=== PATIENT | male | born 1980 | race Caucasian/White ===

== ENCOUNTER 2018-03-16 08:36 | Emergency (ER) | payer OTHER, SELFPAY ==
[2018-03-16 08:36] VITALS: BMI 19.0
[2018-03-16 08:52] VITALS: PULSE 84
--- NOTE | 2018-03-16 09:15 | C.PDOC ---
History Of Present Illness 37 year old male patient presents to the ER with c/o right foot pain that started yesterday morning when he woke up. Patient reports it feels like a "cramp", worse when walking and is a 6/10. Patient states he never had this before ad denies prolong standing/walking, but he drives a lot. Patient is a peritoneal dialysis patient and goes to treatment x3 a week: Friday, Friday, Friday. Patient also notes he threw up yesterday after eating spicy food, which he was not allowed to eat due to dialysis. He states his throat is irritated and feels like "it's torn up". Time Seen by Provider: 03/16/18 08:53 Chief Complaint (Nursing): Lower Extremity Problem/Injury History Per: Patient History/Exam Limitations: no limitations Onset/Duration Of Symptoms: Days (yesterday), Sudden Onset Current Symptoms Are (Timing): Still Present Pain Scale Rating Of: 6 - Ankle/Foot Description Of Injury: denies: Fell, Struck With Object, Struck Against Object, Twisted Past Medical History Reviewed: Historical Data, Nursing Documentation, Vital Signs Vital Signs: Last Vital Signs Temp 97.8 F 03/16/18 08:47 Pulse 84 03/16/18 08:47 Resp 20 03/16/18 08:47 BP 189/109 H 03/16/18 08:42 Pulse Ox 99 03/16/18 09:57 - Medical History PMH: Anxiety (ABOUT DIAGNOSIS), Back Problems, HTN, End Stage Renal Disease (on peritoneal dialysis), Chronic Kidney Disease - [facility] Procedures BYPASS LEFT BRACHIAL ARTERY TO UPPER ARM VEIN, OPEN APPROACH (06/22/15) FLUOROSCOPY OF RIGHT HEART USING LOW OSMOLAR CONTRAST (06/22/15) INSERTION OF INFUSION DEV INTO R SUBCLAV VEIN, PERC APPROACH (06/22/15) PERFORMANCE OF URINARY FILTRATION, MULTIPLE (06/22/15) Family History: States: Unknown Family Hx - Social History Hx Tobacco Use: Yes Hx Alcohol Use: No Hx Substance Use: No - Immunization History Hx Tetanus Toxoid Vaccination: Yes Hx Influenza Vaccination: Yes Hx Pneumococcal Vaccination: Yes Review Of Systems Except As Marked, All Systems Reviewed And Found Negative. Constitutional: Negative for: Other (trauma on foot) ENT: Positive for: Throat Pain Musculoskeletal: Positive for: Foot Pain Physical Exam - Physical Exam Appears: Non-toxic, No Acute Distress Skin: Normal Color, Warm, Dry Head: Normacephalic Throat: Normal Neck: Normal ROM, Supple Chest: Symmetrical, No Deformity Respiratory: No Accessory Muscle Use, Other (speaking in full sentences) Gastrointestinal/Abdominal: Soft, Other (Peritoneal dialysis ) Extremity: Tenderness (anterior aspect of medial malleolus and dorsal aspect of foot. ), No Calf Tenderness, Capillary Refill (<2 sec), No Deformity, No Swelling, No Other (bruising) Extremity: Right: Painful To Bear Weight, Bilateral: Atraumatic, Normal Color And Temperature Pulses: Left Dorsalis Pedis: Normal, Right Dorsalis Pedis: Normal Neurological/Psych: Oriented x3, Normal Speech, Normal Sensation ED Course And Treatment O2 Sat by Pulse Oximetry: 99 (RA) Pulse Ox Interpretation: Normal - Other Rad ankle X-Ray: Read By Radiologist Interpretation: Accession No. : [id number]. Patient Name / ID : FIONA MCGOWAN / [id number]. Exam Date : 03/16/2018 09:18:13 ( Approved ). Study Comment : Sex / Age : M / 37Y. Creator : Samuel Melendez Dictator : Physical Trainer : Gas Pit Worker : Jacob Diane MD. Approver2 : Report Date : 03/16/2018 09:23:01. My Comment : . Date of service: 03/16/2018. PROCEDURE: Right Ankle Radiographs. HISTORY: pain. COMPARISON: Comparison made with concurrent radiographs of the right foot. FINDINGS: BONES: Normal. No fracture. JOINTS: Normal. No osteoarthritis. Ankle mortise maintained. Talar dome intact. SOFT TISSUES: Normal. OTHER FINDINGS: None. IMPRESSION: No evidence of acute displaced fracture nor dislocation. foot X-Ray: Read By Radiologist Interpretation: Accession No. : [id number]. Patient Name / ID : FIONA MCGOWAN / [id number]. Exam Date : 03/16/2018 09:21:04 ( Approved ). Study Comment : Sex / Age : M / 37Y. Creator : Samuel Melendez Dictator : Physical Trainer : Gas Pit Worker : Jacob Diane MD. Approver2 : Report Date : 03/16/2018 09:23:01. My Comment : . Date of service: 03/16/2018. PROCEDURE: Right Foot Radiographs. HISTORY: pain. COMPARISON: None. FINDINGS: BONES: Normal. No fracture. JOINTS: Normal. SOFT TISSUES: Normal. OTHER FINDINGS: None. IMPRESSION: No evidence of acute displaced fracture nor dislocation. Medical Decision Making Medical Decision Making: Impression: tendonitis Plans: -- ibuprofen -- tylenol -- XR right ankle -- XR right foot Reassess: Patient is resting comfortably. Tolerating PO. Patient is advised to ice his right foot and to rest. Patient is instructed to f/u with clinic in 1-2 days. Disposition Counseled Patient/Family Regarding: Studies Performed, Diagnosis, Need For Followup, Rx Given - Disposition Referrals: [facility] [Outside] Disposition: HOME/ ROUTINE Disposition Time: 10:53 Condition: STABLE Additional Instructions: Follow up with your doctor or our clinic. Ice your foot for 15 minutes every evening. Prescriptions: Ibuprofen [Motrin] 600 mg PO TID #15 tab Instructions: Plantar Fasciitis Exercises, Heel Pain (Caused by Plantar Fasciitis) (DC) Forms: [facility] (Togolese), General Discharge Instructions - POA Present On Arrival: None - Clinical Impression Clinical Impression: Foot pain, right - Scribe Statement The provider has reviewed the documentation as recorded by the Scribe Hendrix Do Provider Attestation: All medical record entries made by the Scribe were at my direction and personally dictated by me. I have reviewed the chart and agree that the record accurately reflects my personal performance of the history, physical exam, medical decision making, and the department course for this patient. I have also personally directed, reviewed, and agree with the discharge instructions and disposition.
--- NOTE | 2018-03-16 09:34 | RAD ---
Date of service: 03/16/2018 PROCEDURE: Right Ankle Radiographs. HISTORY: pain COMPARISON: Comparison made with concurrent radiographs of the right foot FINDINGS: BONES: Normal. No fracture. JOINTS: Normal. No osteoarthritis. Ankle mortise maintained. Talar dome intact SOFT TISSUES: Normal. OTHER FINDINGS: None. IMPRESSION: No evidence of acute displaced fracture nor dislocation.
--- NOTE | 2018-03-16 09:35 | RAD ---
Date of service: 03/16/2018 PROCEDURE: Right Foot Radiographs. HISTORY: pain COMPARISON: None. FINDINGS: BONES: Normal. No fracture. JOINTS: Normal. SOFT TISSUES: Normal. OTHER FINDINGS: None. IMPRESSION: No evidence of acute displaced fracture nor dislocation.
[2018-03-16 11:10] VITALS: BP 181/117; RESP 18; TEMP 98.4; O2SAT 96
== END 2018-03-16 11:25 | disposition home or self-care (01) ==
LOC: C.ER 08:36
DX: M79.671 Pain in right foot (principal)

== ENCOUNTER 2018-04-26 19:06 | Inpatient (IN) | payer OTHER ==
[2018-04-26 19:07] VITALS: BMI 16.2
--- NOTE | 2018-04-26 19:53 | C.PDOC ---
History Of Present Illness 38 year old male presents to the ED c/o chest pain since last night. Patient reports his pain is mostly right sided, described as pressure like. Patient reports pain is associated with epigastric pain radiating to his back. Patient i s currently on dialysis. Patient denies fever, chills, nausea, vomit, SOB, palpitations, weakness, numbness. Chief Complaint (Nursing): Chest Pain History Per: Patient History/Exam Limitations: no limitations Onset/Duration Of Symptoms: Days Current Symptoms Are (Timing): Still Present Quality: Pressure Recent travel outside of the [place]: No Additional History Per: Patient Past Medical History Reviewed: Historical Data, Nursing Documentation, Vital Signs Vital Signs: Last Vital Signs Temp 98.6 F 04/26/18 19:19 Pulse 92 H 04/26/18 19:32 Resp 16 04/26/18 19:19 BP 176/101 H 04/26/18 19:32 Pulse Ox 96 04/26/18 19:19 - Medical History PMH: Anxiety (ABOUT DIAGNOSIS), Back Problems, HTN (Denies), End Stage Renal Disease (on peritoneal dialysis), Chronic Kidney Disease Surgical History: No Surg Hx - [facility] Procedures BYPASS LEFT BRACHIAL ARTERY TO UPPER ARM VEIN, OPEN APPROACH (06/22/15) FLUOROSCOPY OF RIGHT HEART USING LOW OSMOLAR CONTRAST (06/22/15) INSERTION OF INFUSION DEV INTO R SUBCLAV VEIN, PERC APPROACH (06/22/15) PERFORMANCE OF URINARY FILTRATION, MULTIPLE (06/22/15) Family History: States: Unknown Family Hx - Social History Hx Tobacco Use: Yes Hx Alcohol Use: No Hx Substance Use: No - Immunization History Hx Tetanus Toxoid Vaccination: Yes Hx Influenza Vaccination: Yes Hx Pneumococcal Vaccination: Yes Review Of Systems Constitutional: Negative for: Fever, Chills Cardiovascular: Positive for: Chest Pain. Negative for: Palpitations Respiratory: Negative for: Shortness of Breath Gastrointestinal: Positive for: Abdominal Pain. Negative for: Nausea, Vomiting Musculoskeletal: Positive for: Back Pain Skin: Negative for: Rash Neurological: Negative for: Weakness, Numbness, Headache Physical Exam - Physical Exam Appears: Non-toxic, In Acute Distress (due to pain) Skin: Normal Color, Warm, Dry Head: Atraumatic, Normacephalic Eye(s): bilateral: Normal Inspection Oral Mucosa: Moist Neck: Normal ROM, Supple Chest: Symmetrical Cardiovascular: Rhythm Regular Respiratory: Normal Breath Sounds, No Rales, No Rhonchi, No Wheezing Gastrointestinal/Abdominal: Soft, Tenderness (epigastric), No Guarding, No Rebound Extremity: Normal ROM, No Tenderness, No Swelling Neurological/Psych: Oriented x3, Normal Speech, Normal Cognition Gait: Steady ED Course And Treatment - Laboratory Results Result Diagrams: 04/26/18 20:11 04/26/18 20:11 ECG: Interpreted By Me, Viewed By Me ECG Rhythm: Sinus Rhythm ECG Interpretation: Abnormal Interpretation Of ECG: NSR, LVH, abnormal tracings Rate From EC O2 Sat by Pulse Oximetry: 96 (ON RA) Pulse Ox Interpretation: Normal - CT Scan/US CT chest Other Rad Studies (CT/US): Read By Radiologist, Radiology Report Reviewed CT/US Interpretation: History. Pulmonary congestion, ESRD. Technique. Multiple axial, coronal, sagittal CT images were obtained through the thorax without IV contrast material. Findings. Chest. There is no evidence of pleural or parenchymal-based mass. There is no evidence of hilar or mediastinal lymphadenopathy. There are scattered pulmonary opacities noted throughout both lung rao consistent with diffuse multifocal pneumonia. Moderate sized right and small left pleural effusions present. The heart is moderately enlarged. Pulmonary venous congestion is present. Liver. Unremarkable. No gross lesion or ductal dilatation. Gallbladder and bile ducts. Unremarkable. Pancreas. Unremarkable. No gross lesion or ductal dilatation. Spleen. Unremarkable. Adrenals. Unremarkable. No mass. Kidneys and ureters. Unremarkable. No hydronephrosis. No solid mass. Peritoneum. There is large amount of free intraperitoneal air. Bones. No acute fracture. IMPRESSION: 1. Scattered pulmonary opacities noted throughout both lung rao consistent with diffuse multifocal pneumonia. 2. Moderate sized right and small left pleural effusions. 3. The heart is moderately enlarged. Pulmonary venous congestion is present. 4. There is large amount of free intraperitoneal air. Findings discussed with Dr. Thompson. . Electronically signed on Apr 26, 2018 10:59:25 PM EDT by: Raudel Sun M.D., ALEKSANDAR Certified By ABR & CBCCT. Fellowship Trained MRI and CT Specialist Medical Decision Making Medical Decision Making: Plan: * EKG * Labs * CXR * Nitroglycerin 1 ea TOP * Pepcid 20 mg IVP Disposition Discussed With DrAnand: Brett Alvarenga Doctor Will See Patient In The: Hospital Counseled Patient/Family Regarding: Diagnosis - Disposition Disposition: HOSPITALIZED Disposition Time: 22:56 Condition: STABLE Forms: [facility] (Tajik) - POA Present On Arrival: None - Clinical Impression Clinical Impression: ESRD (end stage renal disease), Pneumonia, Pulmonary embolism - Scribe Statement The provider has reviewed the documentation as recorded by the Scribe Willy Lopez All medical record entries made by the Scribe were at my direction and personally dictated by me. I have reviewed the chart and agree that the record accurately reflects my personal performance of the history, physical exam, medical decision making, and the department course for this patient. I have also personally directed, reviewed, and agree with the discharge instructions and disposition.
[2018-04-26] MEDS ORDERED: Nitroglycerin 2% Ointment Foilpak UD TOP STA (19:55)
[2018-04-26] MEDS ORDERED: Nitroglycerin 2% Ointment Foilpak UD TOP ONE (20:14)
[2018-04-26 20:21] LABS: BASO # 0.1 K/uL (0.0-0.2); BASO % 0.8 % (0.0-2.0); EOS # 0.2 K/uL (0.0-0.7); EOS % 1.7 % (0.0-4.0); LYMPH # 0.6 K/uL (1.0-4.3); LYMPH % 5.2 % (20.0-40.0); MEAN CELL VOLUME 87.3 fL (80.0-94.0); MEAN CORPUSCULAR HEMOGLOBIN 29.2 pg (27.0-31.0); MEAN CORPUSCULAR HGB CONC 33.5 g/dL (33.0-37.0); MEAN PLATELET VOLUME 6.8 fL (7.2-11.7); MONO # 0.7 K/uL (0.0-0.8); MONO % 6.7 % (0.0-10.0); NEUT # 9.1 K/uL (1.8-7.0); NEUT % 85.6 % (50.0-75.0); NRBC % 0.1 % (0.0-2.0); PLATELET COUNT 114 K/uL (130-400); RBC 3.78 Mil/uL (4.40-5.90); RED CELL DISTRIBUTION WIDTH 16.2 % (11.5-14.5); WHITE BLOOD COUNT 10.7 K/uL (4.8-10.8)
[2018-04-26 20:33] LABS: ALB/GLOB RATIO 1.5 (1.0-2.1); ALBUMIN 3.8 g/dL (3.5-5.0); CALCIUM 8.2 mg/dl (8.6-10.4)
[2018-04-26 20:34] LABS: PROTHROMBIN TIME 11.4 SECONDS (9.7-12.2)
[2018-04-26 20:40] LABS: TROPONIN I 0.033 ng/mL (0.00-0.120)
[2018-04-26 20:50] LABS: LARGE PLATELETS PRESENT; LYMPHOCYTE 9 % (20-40); MONOCYTE 3 % (0-10); NEUTROPHIL 88 % (50-75); PLATELET ESTIMATE SLIGHTLY DECREASED (NORMAL); TOTAL CELLS COUNTED 100
[2018-04-26] MEDS ORDERED: cefTRIAXone IV 1 gm in Dextros 50 ML IVPB ONE (22:31)
[2018-04-26] MEDS ORDERED: Azithromycin 500mg/250ML NS 500 MG/250 ML BAG IV STA (22:32)
[2018-04-26] MEDS ORDERED: Azithromycin 500mg/250ML NS 500 MG/250 ML BAG IVPB ONE (23:03)
[2018-04-26] MEDS ORDERED: cefTRIAXone 1 gm 1 GM/100 ML BAG IVPB ONE (23:04)
[2018-04-27] MEDS ORDERED: SODIUM CHLORIDE 0.9% IV ONE (00:10)
[2018-04-27] MEDS ORDERED: HEPARIN IV ONE (00:10)
--- NOTE | 2018-04-27 00:11 | CP.PCM.HP ---
<Morenita Gr - Last Filed: 04/27/18 00:08> History of Present Illness - History of Present Illness History of Present Illness: Pt is a 38yo M with PMH anxiety, ESRD on peritoneal dialysis daily, CKD presents to ED with chest pain for 2 days. Pt reports sharp pain in epigastric region and pressure-like pain on R side of chest that radiates to right neck. Pt rates pain at a 9/10. He reports associated palpitations, shortness of breath, dizziness, headache, and nausea. He denies any sweating, vomiting, diarrhea, or dysuria. In the ED, EKG showed NSR @92 bpm. Troponin x1 was negative. CXR and CT chest showed patchy b/l infiltrates. D-dimer was elevated at 1264. Pt was given nitroglycerin and started on azithromycin, ceftriaxone, and heparin bolus. SxH: none FamH: mom, epilepsy SocH: denies tobacco, alcohol, recreational drug use Meds: hydralazine 100 BID, norvasc 10 daily, motrin 600 TID, clonidine 0.2 BID, cinacalcet 30 daily, coreg 25 BID, phoslo, calcitriol 0.5 daily Allergies: NKDA PMD: none Pharmacy Technologist: Jm Present on Admission - Present on Admission Any Indicators Present on Admission: No Review of Systems - Review of Systems Review of Systems: as per HPI Past Patient History - Past Medical History & Family History Past Medical History?: Yes - Past Social History Smoking Status: Never Smoked - CARDIAC Hx Hypertension: Yes (Denies) - PULMONARY Hx Respiratory Disorders: No - NEUROLOGICAL Hx Neurological Disorder: No - HEENT Hx HEENT Problems: Yes - RENAL Hx Chronic Kidney Disease: Yes - ENDOCRINE/METABOLIC Hx Endocrine Disorders: No - HEMATOLOGICAL/ONCOLOGICAL Hx Blood Disorders: No - INTEGUMENTARY Hx Dermatological Problems: No - MUSCULOSKELETAL/RHEUMATOLOGICAL Hx Musculoskeletal Disorders: Yes - GASTROINTESTINAL Hx Gastrointestinal Disorders: Yes - GENITOURINARY/GYNECOLOGICAL Hx Genitourinary Disorders: No Other/Comment: DISTENDED BLADDER R/T INABILITY TO EMPTY BLADDER - PSYCHIATRIC Hx Anxiety: Yes (ABOUT DIAGNOSIS) Hx Substance Use: No - SURGICAL HISTORY Hx Surgeries: Yes Hx Vascular Surgery: Yes (left arm fistula perma cath insertion) Hx Vascular Access Device: Yes (RT. CHEST DIALYSIS PERMACATH) Other/Comment: lt arm AV shunt, rt chest permacath; PD surgery (01/25/16) - ANESTHESIA Hx Anesthesia: Yes Hx Anesthesia Reactions: No Hx Malignant Hyperthermia: No Meds Allergies/Adverse Reactions: Allergies Allergy/AdvReac Type Severity Reaction Status Date / Time No Known Allergies Allergy Verified 04/03/18 18:22 Physical Exam - Constitutional Appears: In Acute Distress - Head Exam Head Exam: ATRAUMATIC, NORMOCEPHALIC - Eye Exam Eye Exam: EOMI, Normal appearance Pupil Exam: NORMAL ACCOMODATION - ENT Exam ENT Exam: Mucous Membranes Moist - Neck Exam Neck exam: Positive for: Normal Inspection - Respiratory Exam Respiratory Exam: Clear to Auscultation Bilateral, NORMAL BREATHING PATTERN. absent: Rales, Rhonchi, Wheezes, Respiratory Distress - Cardiovascular Exam Cardiovascular Exam: REGULAR RHYTHM, +S1, +S2. absent: Gallop, Rubs, Systolic Murmur - GI/Abdominal Exam GI & Abdominal Exam: Normal Bowel Sounds, Soft, Tenderness. absent: Distended, Firm Additional comments: tenderness in epigastric region - Extremities Exam Extremities exam: Positive for: normal inspection. Negative for: pedal edema - Neurological Exam Neurological exam: Alert, Oriented x3 - Psychiatric Exam Psychiatric exam: Anxious Results - Vital Signs Recent Vital Signs: Last Vital Signs Temp 98.5 F 04/26/18 23:30 Pulse 95 H 04/26/18 23:30 Resp 22 04/26/18 23:30 BP 162/101 H 04/26/18 23:30 Pulse Ox 96 04/26/18 23:30 - Labs Result Diagrams: 04/26/18 20:11 04/26/18 20:11 Labs: Laboratory Results - last 24 hr 04/26/18 04/26/18 04/26/18 20:11 20:11 20:11 WBC 10.7 D RBC 3.78 L Hgb 11.0 L Hct 33.0 L MCV 87.3 D MCH 29.2 MCHC 33.5 RDW 16.2 H Plt Count 114 L D MPV 6.8 L Neut % (Auto) 85.6 H Lymph % (Auto) 5.2 L Douglas % (Auto) 6.7 Eos % (Auto) 1.7 Baso % (Auto) 0.8 Neut # (Auto) 9.1 H Lymph # (Auto) 0.6 L Douglas # (Auto) 0.7 Eos # (Auto) 0.2 Baso # (Auto) 0.1 Neutrophils % (Manual) 88 H Lymphocytes % (Manual) 9 L Monocytes % (Manual) 3 Platelet Estimate Slightly decreased L Large Platelets Present PT 11.4 INR 1.0 APTT 32 D-Dimer, Quantitative 1264 H Sodium 140 Potassium 4.0 Chloride 100 Carbon Dioxide 21 L Anion Gap 22 H BUN 109 H* Creatinine 12.0 H* Est GFR ( Amer) 6 Est GFR (Non-Af Amer) 5 Random Glucose 110 Calcium 8.2 L Total Bilirubin 0.7 AST 21 ALT 37 Alkaline Phosphatase 51 Troponin I 0.0330 Total Protein 6.4 Albumin 3.8 Globulin 2.6 Albumin/Globulin Ratio 1.5 Lipase 274 Assessment & Plan - Assessment and Plan (Free Text) Assessment: Pt is a 38yo M with PMH anxiety, ESRD on peritoneal dialysis daily, CKD presents to ED with chest pain admitted for further evaluation and treatment of pneumonia. Plan: CAP - pt afebrile - WBC: 10.7 - CXR, CT chest: b/l patchy infiltrates - start azithromycin 500 IV daily - start rocephin 1g IV daily Elevated D-dimer - D-dimer 1264 - CT angio not recommended at this time due to ESRD - given heparin 4000u in ED - start on heparin 18u/kg @900u/hr - consider V/Q scan ESRD - pt with CKD - BUN 109 - Cr 12 - on peritoneal dialysis daily - continue home hydralazine 100 BID - continue home norvasc 10 daily - continue home clonidine 0.2 BID - continue home cinacalcet 30 daily - continue home coreg 25 daily - phoslo BID - continue home calcitriol 0.5 daily - nephro consulted, Dr. Mack - f/u recs for dialysis Elevated BP - continue home hydralazine 100 BID - continue home norvasc 10 daily - continue home clonidine 0.2 BID - continue home coreg 25 daily PPX: Pepcid 20 po daily On therapeutic heparin HHD Case reviewed and plan discussed with Dr. Alvarenga <Brett Alvarenga - Last Filed: 04/27/18 06:40> Results - Vital Signs Recent Vital Signs: Last Vital Signs Temp 98.3 F 04/27/18 06:22 Pulse 98 H 04/27/18 06:22 Resp 18 10/15/18 06:22 BP 150/80 04/27/18 06:22 Pulse Ox 96 04/27/18 06:22 - Labs Result Diagrams: 04/26/18 20:11 04/26/18 20:11 Labs: Laboratory Results - last 24 hr 04/26/18 04/26/18 04/26/18 00:50 20:11 20:11 WBC 10.7 D RBC 3.78 L Hgb 11.0 L Hct 33.0 L MCV 87.3 D MCH 29.2 MCHC 33.5 RDW 16.2 H Plt Count 114 L D MPV 6.8 L Neut % (Auto) 85.6 H Lymph % (Auto) 5.2 L Douglas % (Auto) 6.7 Eos % (Auto) 1.7 Baso % (Auto) 0.8 Neut # (Auto) 9.1 H Lymph # (Auto) 0.6 L Douglas # (Auto) 0.7 Eos # (Auto) 0.2 Baso # (Auto) 0.1 Neutrophils % (Manual) 88 H Lymphocytes % (Manual) 9 L Monocytes % (Manual) 3 Platelet Estimate Slightly decreased L Large Platelets Present PT 11.4 INR 1.0 APTT 32 D-Dimer, Quantitative 1264 H Puncture Site Rr pCO2 37 pO2 89 HCO3 21.7 ABG pH 7.36 ABG Total CO2 22.0 ABG O2 Saturation 98.0 ABG Base Excess -4.1 L ABG Hemoglobin 10.1 L ABG Carboxyhemoglobin 2.8 H POC ABG HHb (Measured) 1.9 ABG Methemoglobin 1.5 Douglas Test Yes A-a O2 Difference 79.0 Respiratory Index 0.9 Hgb O2 Saturation 93.9 L FiO2 30.0 Sodium Potassium Chloride Carbon Dioxide Anion Gap BUN Creatinine Est GFR ( Amer) Est GFR (Non-Af Amer) Random Glucose Calcium Total Bilirubin AST ALT Alkaline Phosphatase Troponin I Total Protein Albumin Globulin Albumin/Globulin Ratio Lipase Urine Color Urine Clarity Urine pH Ur Specific [place] Urine Protein Urine Glucose (UA) Urine Ketones Urine Blood Urine Nitrate Urine Bilirubin Urine Urobilinogen Ur Leukocyte Esterase Urine WBC (Auto) Urine RBC (Auto) Ur Squamous Epith Cells 04/26/18 04/27/18 20:11 00:45 WBC RBC Hgb Hct MCV MCH MCHC RDW Plt Count MPV Neut % (Auto) Lymph % (Auto) Douglas % (Auto) Eos % (Auto) Baso % (Auto) Neut # (Auto) Lymph # (Auto) Douglas # (Auto) Eos # (Auto) Baso # (Auto) Neutrophils % (Manual) Lymphocytes % (Manual) Monocytes % (Manual) Platelet Estimate Large Platelets PT INR APTT D-Dimer, Quantitative Puncture Site pCO2 pO2 HCO3 ABG pH ABG Total CO2 ABG O2 Saturation ABG Base Excess ABG Hemoglobin ABG Carboxyhemoglobin POC ABG HHb (Measured) ABG Methemoglobin Douglas Test A-a O2 Difference Respiratory Index Hgb O2 Saturation FiO2 Sodium 140 Potassium 4.0 Chloride 100 Carbon Dioxide 21 L Anion Gap 22 H BUN 109 H* Creatinine 12.0 H* Est GFR ( Amer) 6 Est GFR (Non-Af Amer) 5 Random Glucose 110 Calcium 8.2 L Total Bilirubin 0.7 AST 21 ALT 37 Alkaline Phosphatase 51 Troponin I 0.0330 Total Protein 6.4 Albumin 3.8 Globulin 2.6 Albumin/Globulin Ratio 1.5 Lipase 274 Urine Color Straw Urine Clarity Clear Urine pH 6.0 Ur Specific [place] 1.010 Urine Protein 2+ H Urine Glucose (UA) 1+ H Urine Ketones Negative Urine Blood 1+ H Urine Nitrate Negative Urine Bilirubin Negative Urine Urobilinogen Normal Ur Leukocyte Esterase Neg Urine WBC (Auto) 2 Urine RBC (Auto) 3 Ur Squamous Epith Cells < 1 Assessment & Plan - Date & Time Date: 04/27/18 (I have seen and examined the patient. I agree with the findings and plan of care as documented by Dr. Gr. Patient with bilateral pneumonia. Elevated d-dimer. Azithromycin and Rocephin. CT angio not possible due to ESRD. VQ scan when possible. Heparin for now. Consult to nephro for dialysis. Monitor for acute changes.) Time: 06:38 Attending/Attestation - Attestation I have personally seen and examined this patient.: Yes I have fully participated in the care of the patient.: Yes I have reviewed all pertinent clinical information: Yes
[2018-04-27] MEDS ORDERED: Heparin25000 units/250ml 1/2NS 25,000 UNITS/250 ML BAG IV PRN (00:15)
[2018-04-27 00:51] LABS: SQUAMOUS EPITHIAL < 1 /hpf (0-5); URINE BILIRUBIN NEGATIVE (NEGATIVE); URINE BLOOD 1+ (NEGATIVE); URINE CLARITY Clear (Clear); URINE COLOR Straw (YELLOW); URINE GLUCOSE (UA) 1+ mg/dL (Normal); URINE LEUKOCYTE ESTERASE NEG Leu/uL (Negative); URINE PROTEIN 2+ mg/dL (NEGATIVE); URINE UROBILINOGEN NORMAL mg/dL (0.2-1.0)
[2018-04-27 01:07] LABS: ABG ALLEN TEST YES; ARTERIAL BLOOD GAS HCO3 21.7 mmol/L (21-28); ARTERIAL BLOOD GAS HEMOGLOBIN 10.1 g/dL (11.7-17.4); ARTERIAL BLOOD GAS PCO2 37 mm/Hg (35-45); ARTERIAL BLOOD GAS PH 7.36 (7.35-7.45); ARTERIAL BLOOD GAS PO2 89 mm/Hg (80-100)
[2018-04-27 07:02] LABS: BASO # 0.1 K/uL (0.0-0.2); BASO % 1.2 % (0.0-2.0); EOS # 0.1 K/uL (0.0-0.7); EOS % 0.6 % (0.0-4.0); HEMOGLOBIN 9.8 g/dL (12.0-18.0); LYMPH # 0.7 K/uL (1.0-4.3); LYMPH % 8.1 % (20.0-40.0); MEAN CELL VOLUME 86.9 fL (80.0-94.0); MEAN CORPUSCULAR HEMOGLOBIN 29.7 pg (27.0-31.0); MEAN CORPUSCULAR HGB CONC 34.1 g/dL (33.0-37.0); MONO # 0.8 K/uL (0.0-0.8); MONO % 8.4 % (0.0-10.0); NEUT # 7.5 K/uL (1.8-7.0); NEUT % 81.7 % (50.0-75.0); PLATELET COUNT 118 K/uL (130-400); RBC 3.32 Mil/uL (4.40-5.90); RED CELL DISTRIBUTION WIDTH 16.3 % (11.5-14.5); WHITE BLOOD COUNT 9.2 K/uL (4.8-10.8)
[2018-04-27 07:10] LABS: INR 1.1; PROTHROMBIN TIME 12.3 SECONDS (9.7-12.2)
[2018-04-27 08:23] LABS: ALB/GLOB RATIO 1.5 (1.0-2.1); ALBUMIN 3.5 g/dL (3.5-5.0); CALCIUM 7.2 mg/dl (8.6-10.4)
[2018-04-27 08:42] LABS: ANISOCYTOSIS SLIGHT; EOSINOPHIL 1 % (0-4); HYPOCHROMIC SLIGHT; LYMPHOCYTE 10 % (20-40); MONOCYTE 5 % (0-10); NEUTROPHIL 84 % (50-75); PLATELET ESTIMATE SLIGHTLY DECREASED (NORMAL); TOTAL CELLS COUNTED 100
--- NOTE | 2018-04-27 09:32 | CP.PCM.PN ---
<Jim Ma - Last Filed: 04/27/18 19:03> Subjective - Date & Time of Evaluation Date of Evaluation: 04/27/18 Time of Evaluation: 08:10 - Subjective Subjective: Medicine Progress Note for Hospitalist Service Pt seen and examined at bedside this am. States chest pain and epigastric pain have resolved. Denies any acute complaints currently. Observed tolerating PO diet without concerns. No acute events reported overnight. Pt denies fever, chills, chest pain, sob, n/v/d/c, abd pain, urinary complaints, or other symptoms. Objective - Vital Signs/Intake and Output Vital Signs (last 24 hours): Temp Pulse Resp BP Pulse Ox 98.3 F 94 H 18 143/76 97 04/27/18 06:22 04/27/18 07:32 04/27/18 07:32 04/27/18 07:32 04/27/18 07:32 Intake and Output: 04/27/18 04/27/18 06:59 18:59 Output Total 200 Balance -200 - Medications Medications: Current Medications Acetaminophen (Tylenol 325mg Tab) 325 mg PO Q6 PRN PRN Reason: Pain, moderate (4-7) Amlodipine Besylate (Norvasc) 10 mg PO DAILY [facility] Calcitriol (Rocaltrol) 0.5 mcg PO DAILY [facility] Calcium Acetate (Phoslo) 667 mg PO BIDCC [facility] Carvedilol (Coreg) 25 mg PO BID [facility] Cinacalcet (Sensipar) 30 mg PO DAILY [facility] Clonidine HCl (Catapres) 0.2 mg PO BID [facility] Famotidine (Pepcid) 20 mg PO BID [facility] Hydralazine HCl (Apresoline) 100 mg PO BID [facility] Azithromycin 500 mg/ Sodium (Chloride) 250 mls @ 250 mls/hr IVPB DAILY [facility]; Protocol Ceftriaxone Sodium 1 gm/ (Sodium Chloride) 100 mls @ 100 mls/hr IVPB DAILY [facility]; Protocol Heparin Sodium/Sodium Chloride (Heparin 20436 Units/250ml 1/2 Normal Saline) 25,000 units in 250 mls @ 9.226 mls/hr IV .Q24H PRN; Protocol PRN Reason: ADJUST RATE PER PROTOCOL Last Admin: 04/27/18 00:53 Dose: 18 units/kg/hr, 9.226 mls/hr Ondansetron HCl (Zofran Odt) 4 mg PO Q6H PRN PRN Reason: Nausea/Vomiting Last Admin: 04/26/18 23:45 Dose: 4 mg - Labs Labs: 04/27/18 06:54 04/27/18 06:58 PT 12.3 SECONDS (9.7-12.2) H 04/27/18 06:54 INR 1.1 04/27/18 06:54 APTT 46 SECONDS (21-34) H D 04/27/18 06:54 - Constitutional Appears: Non-toxic, No Acute Distress, Chronically Ill - Head Exam Head Exam: ATRAUMATIC, NORMOCEPHALIC - Eye Exam Eye Exam: EOMI, Normal appearance, PERRL - ENT Exam ENT Exam: Mucous Membranes Moist - Respiratory Exam Respiratory Exam: Clear to Ausculation Bilateral, NORMAL BREATHING PATTERN. absent: Rales, Rhonchi, Wheezes - Cardiovascular Exam Cardiovascular Exam: REGULAR RHYTHM, +S1, +S2. absent: Gallop, Rubs, Murmur - GI/Abdominal Exam GI & Abdominal Exam: Soft, Normal Bowel Sounds. absent: Distended, Firm, Guarding, Tenderness Additional comments: Peritoneal dialysis site c/d/i, covered in dressing - Extremities Exam Extremities Exam: Full ROM, Normal Capillary Refill, Normal Inspection. absent: Calf Tenderness, Pedal Edema - Neurological Exam Neurological Exam: Alert, Awake, CN II-XII Intact, Oriented x3 - Psychiatric Exam Psychiatric exam: Normal Affect, Normal Mood - Skin Skin Exam: Dry, Intact, Warm Assessment and Plan - Assessment and Plan (Free Text) Assessment: 38 y o M with PMHx anxiety, ESRD on peritoneal dialysis, CKD presents to ED with chest pain admitted for further evaluation and treatment of pneumonia. Plan: CAP - pt afebrile - WBC: 9.2 - CXR, CT chest: b/l patchy infiltrates - C/w azithromycin 500 IV daily - C/w rocephin 1g IV daily Elevated D-dimer - D-dimer 1264 - CT angio not recommended at this time due to ESRD - given heparin 4000u in ED - D/c'd heparin drip - V/Q scan low probability for acute clot ESRD - pt with CKD - BUN/Cr 108/11.6 today - on peritoneal dialysis - continue home hydralazine 100 BID - continue home norvasc 10 daily - continue home clonidine 0.2 BID - continue home cinacalcet 30 daily - continue home coreg 25 daily - phoslo BID - continue home calcitriol 0.5 daily - nephro consulted, Dr. Oneal - f/u recs for dialysis Elevated BP - continue home hydralazine 100 BID - continue home norvasc 10 daily - continue home clonidine 0.2 BID - continue home coreg 25 daily PPX: Pepcid 20 po daily Heparin D/c'd HHD Pt seen, examined with, and plan d/w Dr. Russo, attending physician. Jim Ma DO PGY-1, Education Administrator Pager #[phone] <Reginald Russo H - Last Filed: 04/27/18 19:37> Objective - Vital Signs/Intake and Output Vital Signs (last 24 hours): Temp Pulse Resp BP Pulse Ox 97.8 F 84 20 130/81 95 04/27/18 09:00 04/27/18 16:00 04/27/18 09:00 04/27/18 17:45 04/27/18 09:00 Intake and Output: 04/27/18 04/28/18 18:59 06:59 Intake Total 390 Output Total 100 Balance 290 - Medications Medications: Current Medications Acetaminophen (Tylenol 325mg Tab) 325 mg PO Q6 PRN PRN Reason: Pain, moderate (4-7) Amlodipine Besylate (Norvasc) 10 mg PO DAILY [facility] Last Admin: 04/27/18 10:09 Dose: 10 mg Calcitriol (Rocaltrol) 0.5 mcg PO DAILY [facility] Last Admin: 04/27/18 10:05 Dose: 0.5 mcg [facility] Last Admin: 04/27/18 17:43 Dose: 667 mg Carvedilol (Coreg) 25 mg PO BID [facility] Last Admin: 04/27/18 17:45 Dose: 25 mg Cinacalcet (Sensipar) 30 mg PO DAILY [facility] Last Admin: 04/27/18 10:05 Dose: 30 mg Clonidine HCl (Catapres) 0.2 mg PO BID [facility] Last Admin: 04/27/18 17:43 Dose: 0.2 mg Famotidine (Pepcid) 20 mg PO BID [facility] Last Admin: 04/27/18 17:43 Dose: 20 mg Hydralazine HCl (Apresoline) 100 mg PO BID [facility] Last Admin: 04/27/18 17:43 Dose: 100 mg Azithromycin 500 mg/ Sodium (Chloride) 250 mls @ 250 mls/hr IVPB DAILY [facility]; Protocol Ceftriaxone Sodium 1 gm/ (Sodium Chloride) 100 mls @ 100 mls/hr IVPB DAILY [facility]; Protocol Ondansetron HCl (Zofran Odt) 4 mg PO Q6H PRN PRN Reason: Nausea/Vomiting Last Admin: 04/26/18 23:45 Dose: 4 mg - Labs Labs: 04/27/18 06:54 04/27/18 06:58 PT 12.3 SECONDS (9.7-12.2) H 04/27/18 06:54 INR 1.1 04/27/18 06:54 APTT 46 SECONDS (21-34) H D 04/27/18 06:54 Attending/Attestation - Attestation I have personally seen and examined this patient.: Yes I have fully participated in the care of the patient.: Yes I have reviewed all pertinent clinical information, including history, physical exam and plan: Yes Notes (Text): 04/27/18 19:35 Medical attending: Patient was seen and examined by me. Agree with the above note by the diploma medical assistant The patient when we saw him was not in any acute distress. There was a CT scan done without contrast showing concerning findings for pneumonia and he remains on IV abx at this time. Also DDimer was elevated a V/Q scan was low probablity - the heparin ggt was stopped. The patient has history of ESRD and is pn PD dialysis. Reginald Russo
--- NOTE | 2018-04-27 12:33 | CP.PCM.PN ---
Subjective - Date & Time of Evaluation Date of Evaluation: 04/27/18 Time of Evaluation: 12:32 - Subjective Subjective: Pt is a 38yo M with PMH anxiety, ESRD on peritoneal dialysis daily, CKD presents to ED with chest pain for 2 days. Pt reports sharp pain in epigastric region and pressure-like pain on R side of chest that radiates to right neck. Pt rates pain at a 9/10. He reports associated palpitations, shortness of breath, dizziness, headache, and nausea. He denies any sweating, vomiting, diarrhea, or dysuria. CXR and CT chest showed patchy b/l infiltrates. D-dimer was elevated at 1264. Pt was given nitroglycerin and started on azithromycin, ceftriaxone on heparin gtt for elevated d dimer PD: APD, 4 nighttime exchanges, daytime dry. 2.5% dianeal. last pd friday night. denies any cloudy fluid, constipation SxH: none FamH: mom, epilepsy SocH: denies tobacco, alcohol, recreational drug use Meds: hydralazine 100 BID, norvasc 10 daily, motrin 600 TID, clonidine 0.2 BID, cinacalcet 30 daily, coreg 25 BID, phoslo, calcitriol 0.5 daily Allergies: NKDA PMD: none Objective - Vital Signs/Intake and Output Vital Signs (last 24 hours): Temp Pulse Resp BP Pulse Ox 98.3 F 94 H 16 148/92 H 100 04/27/18 06:22 04/27/18 07:32 04/27/18 09:00 04/27/18 10:04 04/27/18 09:00 Intake and Output: 04/27/18 04/27/18 06:59 18:59 Intake Total 240 Output Total 200 100 Balance -200 140 - Medications Medications: Current Medications Acetaminophen (Tylenol 325mg Tab) 325 mg PO Q6 PRN PRN Reason: Pain, moderate (4-7) Amlodipine Besylate (Norvasc) 10 mg PO DAILY [facility] Last Admin: 04/27/18 10:09 Dose: 10 mg Calcitriol (Rocaltrol) 0.5 mcg PO DAILY [facility] Last Admin: 04/27/18 10:05 Dose: 0.5 mcg Calcium Acetate (Phoslo) 667 mg PO BIDCC [facility] Last Admin: 04/27/18 08:45 Dose: 667 mg Carvedilol (Coreg) 25 mg PO BID [facility] Last Admin: 04/27/18 10:04 Dose: 25 mg Cinacalcet (Sensipar) 30 mg PO DAILY [facility] Last Admin: 04/27/18 10:05 Dose: 30 mg Clonidine HCl (Catapres) 0.2 mg PO BID [facility] Last Admin: 04/27/18 10:04 Dose: 0.2 mg Famotidine (Pepcid) 20 mg PO BID [facility] Last Admin: 04/27/18 10:04 Dose: 20 mg Hydralazine HCl (Apresoline) 100 mg PO BID [facility] Last Admin: 04/27/18 10:03 Dose: 100 mg Azithromycin 500 mg/ Sodium (Chloride) 250 mls @ 250 mls/hr IVPB DAILY [facility]; Protocol Ceftriaxone Sodium 1 gm/ (Sodium Chloride) 100 mls @ 100 mls/hr IVPB DAILY [facility]; Protocol Heparin Sodium/Sodium Chloride (Heparin 30625 Units/250ml 1/2 Normal Saline) 25,000 units in 250 mls @ 9.226 mls/hr IV .Q24H PRN; Protocol PRN Reason: ADJUST RATE PER PROTOCOL Last Admin: 04/27/18 00:53 Dose: 18 units/kg/hr, 9.226 mls/hr Ondansetron HCl (Zofran Odt) 4 mg PO Q6H PRN PRN Reason: Nausea/Vomiting Last Admin: 04/26/18 23:45 Dose: 4 mg - Labs Labs: 04/27/18 06:54 04/27/18 06:58 PT 12.3 SECONDS (9.7-12.2) H 04/27/18 06:54 INR 1.1 04/27/18 06:54 APTT 46 SECONDS (21-34) H D 04/27/18 06:54 - Constitutional Appears: Non-toxic, No Acute Distress, Older Than Stated Age, Cachectic - Head Exam Head Exam: NORMAL INSPECTION, NORMOCEPHALIC - Eye Exam Eye Exam: Normal appearance, PERRL - ENT Exam ENT Exam: Mucous Membranes Moist, Normal Exam - Neck Exam Neck Exam: Full ROM, Normal Inspection - Respiratory Exam Respiratory Exam: Clear to Ausculation Bilateral, NORMAL BREATHING PATTERN - Cardiovascular Exam Cardiovascular Exam: REGULAR RHYTHM, RRR - GI/Abdominal Exam GI & Abdominal Exam: Distended (PD cathetr in plac.e ), Soft. absent: Tenderness - Extremities Exam Extremities Exam: Full ROM, Normal Inspection - Neurological Exam Neurological Exam: Alert, Awake, Oriented x3 - Psychiatric Exam Psychiatric exam: Normal Affect, Normal Mood - Skin Skin Exam: Dry, Intact Assessment and Plan (1) ESRD (end stage renal disease) Status: Acute (2) Pneumonia Status: Acute (3) Pulmonary embolism Status: Acute (4) Anemia Status: Acute - Assessment and Plan (Free Text) Assessment: maintain PD okay for pt to use home machine and prescription ?dc heparin gtt
--- NOTE | 2018-04-27 12:41 | NM ---
Date of service: 04/27/2018 COMPARISON: April 26, 2018 TECHNIQUE: 6.1 mCi technetium 99-m Xenon 133 3.6 mCI technetium 99-m MAA administered intravenously. FINDINGS: VENTILATION COMPONENT: Mildly heterogeneous ventilation consistent with radiographic findings. PERFUSION COMPONENT: Heterogeneous distribution of radionuclide. No geographic, segmental, lobar abnormalities apparent on the present examination. IMPRESSION: Low probability ventilation perfusion scan for pulmonary embolism.
--- NOTE | 2018-04-27 13:42 | CT ---
Date of service: 04/26/18 CT chest without IV contrast Indication: Pulmonary congestion, end-stage renal disease Technique: Contiguous axial images were obtained through the chest without intravenous contrast enhancement. Sagittal and coronal reconstructions were generated and reviewed. This CT exam was performed using 1 or more of the following dose reduction techniques: Automated exposure control, adjustment of the MAA and/or kV according to patient size, and/or use of iterative reconstruction technique. Radiation dose (DLP): 173.48 MGy-cm. Comparison: Chest x-ray performed 04/26/18 Findings: Visualized portions of the inferior thyroid gland appear unremarkable. Cardiomegaly. Enlarged upper and lower mediastinal adenopathy. Prevascular adenopathy. Evaluation for hilar adenopathy is limited due to absence of IV contrast. Scattered bilateral pulmonary opacities throughout all lung rao with greatest distribution in the mid lung rao. Moderate right and small left pleural effusions and mild compressive consolidations. No pneumothorax. Limited visualization of the noncontrast upper abdomen; abdominal free air. Subtle increased density of the osseous structures. Impression: Patchy bilateral nodular pulmonary opacities throughout all lung rao with greatest distribution mid lung zones. Finding suspicious for diffuse multifocal pneumonia. Correlate clinically. Recommend follow-up upon completion of treatment in order to ensure complete resolution. Moderate-sized right and small left pleural effusions. Marked cardiomegaly. Pulmonary venous congestion. Extensive mediastinal/prevascular adenopathy. Large intraperitoneal free air. Subtle increased density of the osseous structures, possibly related to metabolic disease/renal osteodystrophy. Correlate clinically. Preliminary impression was provided by Fengguo. Dr. Sun discussed the above findings with Dr. Thompson on 04/26/18.
[2018-04-27] MEDS: Azithromycin 500 MG in Sodium Chloride 0.9% 250 ML IVPB SCH (22:30)
--- NOTE | 2018-04-27 23:02 | CARD ---
APPROVED REPORT Date of service: 04/26/2018 EKG Measurement Heart [id number] MD [id number] <Conclusion> Normal sinus rhythm Biatrial enlargement Left ventricular hypertrophy Prolonged QT Abnormal ECG
[2018-04-28 06:13] LABS: BASO # 0.1 K/uL (0.0-0.2); EOS # 0.2 K/uL (0.0-0.7); HEMOGLOBIN 9.2 g/dL (12.0-18.0); LYMPH # 0.7 K/uL (1.0-4.3); MEAN CORPUSCULAR HEMOGLOBIN 29.2 pg (27.0-31.0); MEAN CORPUSCULAR HGB CONC 33.5 g/dL (33.0-37.0); MONO # 1.1 K/uL (0.0-0.8); MONO % 10.2 % (0.0-10.0); NEUT # 8.3 K/uL (1.8-7.0); NEUT % 79.8 % (50.0-75.0); PLATELET COUNT 122 K/uL (130-400); RBC 3.15 Mil/uL (4.40-5.90); RED CELL DISTRIBUTION WIDTH 16.4 % (11.5-14.5); WHITE BLOOD COUNT 10.4 K/uL (4.8-10.8)
[2018-04-28 06:47] LABS: ALB/GLOB RATIO 1.3 (1.0-2.1); ALBUMIN 3.2 g/dL (3.5-5.0); CALCIUM 7.1 mg/dl (8.6-10.4)
[2018-04-28 09:02] LABS: BANDS 1 % (0-2); LYMPHOCYTE 9 % (20-40); MONOCYTE 7 % (0-10); NEUTROPHIL 83 % (50-75); TOTAL CELLS COUNTED 100
[2018-04-28 09:03] LABS: ANISOCYTOSIS SLIGHT; PLATELET ESTIMATE SLIGHTLY DECREASED (NORMAL)
[2018-04-28] MEDS: Azithromycin 500 MG in Sodium Chloride 0.9% 250 ML IVPB SCH (09:35)
--- NOTE | 2018-04-28 09:38 | RAD ---
Date of service: 2018-04-26 19:53:16 PROCEDURE: CHEST RADIOGRAPH, 1 VIEW HISTORY: chest pain COMPARISON: 04/03/2018 FINDINGS: LUNGS: Diffuse multifocal bilateral airspace opacities. PLEURA: No pneumothorax or pleural fluid seen. CARDIOVASCULAR: Cardiomegaly. OSSEOUS STRUCTURES: No significant abnormalities. VISUALIZED UPPER ABDOMEN: Extensive free intraperitoneal air in the upper abdomen. OTHER FINDINGS: None. IMPRESSION: Diffuse multifocal airspace opacities suggestive for multifocal pneumonia. Free intraperitoneal air within the upper abdomen.
--- NOTE | 2018-04-28 10:09 | CP.PCM.PN ---
Subjective - Date & Time of Evaluation Date of Evaluation: 04/28/18 Time of Evaluation: 10:08 - Subjective Subjective: seen and examined neg v/q scan c/o constipation abdominal pain resolved, chest pain resolved pd fluid clear spoke w/ outpt PD nurse reg prescription Objective - Vital Signs/Intake and Output Vital Signs (last 24 hours): Temp Pulse Resp BP Pulse Ox 97.9 F 83 13 139/86 96 04/28/18 08:00 04/28/18 08:00 04/28/18 08:00 04/28/18 09:32 04/28/18 08:00 - Medications Medications: Current Medications Acetaminophen (Tylenol 325mg Tab) 325 mg PO Q6 PRN PRN Reason: Pain, moderate (4-7) Last Admin: 04/28/18 02:30 Dose: 325 mg Amlodipine Besylate (Norvasc) 10 mg PO DAILY [facility] Last Admin: 04/28/18 09:34 Dose: 10 mg Calcitriol (Rocaltrol) 0.5 mcg PO DAILY [facility] Last Admin: 04/28/18 09:34 Dose: 0.5 mcg [facility]) [facility] Last Admin: 04/28/18 08:18 Dose: 667 mg Carvedilol (Coreg) 25 mg PO BID [facility] Last Admin: 04/28/18 09:32 Dose: 25 mg Cinacalcet (Sensipar) 30 mg PO DAILY [facility] Last Admin: 04/28/18 09:35 Dose: 30 mg Clonidine HCl (Catapres) 0.2 mg PO BID [facility] Last Admin: 04/28/18 09:32 Dose: 0.2 mg Famotidine (Pepcid) 20 mg PO BID [facility] Last Admin: 04/28/18 09:34 Dose: 20 mg Hydralazine HCl (Apresoline) 100 mg PO BID [facility] Last Admin: 04/28/18 09:32 Dose: 100 mg Azithromycin 500 mg/ Sodium (Chloride) 250 mls @ 250 mls/hr IVPB DAILY [facility]; Protocol Last Admin: 04/28/18 09:35 Dose: 250 mls/hr Ceftriaxone Sodium 1 gm/ (Sodium Chloride) 100 mls @ 100 mls/hr IVPB DAILY [facility]; Protocol Last Admin: 04/28/18 09:34 Dose: 100 mls/hr Ondansetron HCl (Zofran Odt) 4 mg PO Q6H PRN PRN Reason: Nausea/Vomiting Last Admin: 04/26/18 23:45 Dose: 4 mg - Labs Labs: 04/28/18 06:02 04/28/18 06:02 PT 12.3 SECONDS (9.7-12.2) H 04/27/18 06:54 INR 1.1 04/27/18 06:54 APTT 46 SECONDS (21-34) H D 04/27/18 06:54 - Constitutional Appears: Non-toxic, No Acute Distress, Chronically Ill - Head Exam Head Exam: NORMAL INSPECTION, NORMOCEPHALIC - Eye Exam Eye Exam: Normal appearance, PERRL - ENT Exam ENT Exam: Mucous Membranes Moist, Normal Exam - Neck Exam Neck Exam: Full ROM, Normal Inspection - Respiratory Exam Respiratory Exam: Clear to Ausculation Bilateral, NORMAL BREATHING PATTERN - Cardiovascular Exam Cardiovascular Exam: REGULAR RHYTHM, RRR - GI/Abdominal Exam GI & Abdominal Exam: Distended (pd fluid), Soft - Extremities Exam Extremities Exam: Full ROM, Normal Inspection - Neurological Exam Neurological Exam: Alert, Awake, Oriented x3 - Psychiatric Exam Psychiatric exam: Normal Affect, Normal Mood - Skin Skin Exam: Dry, Intact Assessment and Plan (1) ESRD (end stage renal disease) Status: Acute (2) Pneumonia Status: Acute (3) Pulmonary embolism Status: Acute (4) Anemia Status: Acute - Assessment and Plan (Free Text) Assessment: maintain PD as per outpt prescription azotemia noted, pt advised compliance w/ treatments. check fluid cell count and culture lactulose for constipation
[2018-04-28 12:27] VITALS: BP 111/61; RESP 12; TEMP 97.6; O2SAT 95
--- NOTE | 2018-04-28 16:16 | CP.PCM.DIS ---
<Gypsy Louis P - Last Filed: 04/28/18 23:43> Provider - Provider Date of Admission: 04/26/18 22:58 Attending physician: Brett Alvarenga MD Consults: Dr. Walters/Dr. Oneal, nephrology Time Spent in preparation of Discharge (in minutes): 45 Diagnosis - Discharge Diagnosis (1) Pneumonia Status: Acute (2) CKD (chronic kidney disease) stage V requiring chronic dialysis Status: Acute (3) D-dimer, elevated Status: Acute Hospital Course - Lab Results Lab Results: Micro Results 04/26/18 22:30 Blood Blood Culture - Preliminary NO GROWTH AFTER 24 HOURS 04/26/18 23:00 Blood Blood Culture - Preliminary NO GROWTH AFTER 24 HOURS Most Recent Lab Values WBC 10.4 K/uL (4.8-10.8) 04/28/18 06:02 RBC 3.15 Mil/uL (4.40-5.90) L 04/28/18 06:02 Hgb 9.2 g/dL (12.0-18.0) L 04/28/18 06:02 Hct 27.4 % (35.0-51.0) L 04/28/18 06:02 MCV 87.0 fL (80.0-94.0) 04/28/18 06:02 MCH 29.2 pg (27.0-31.0) 04/28/18 06:02 MCHC 33.5 g/dL (33.0-37.0) 04/28/18 06:02 RDW 16.4 % (11.5-14.5) H 04/28/18 06:02 Plt Count 122 K/uL (130-400) L 04/28/18 06:02 MPV 7.0 fL (7.2-11.7) L 04/28/18 06:02 Neut % (Auto) 79.8 % (50.0-75.0) H 04/28/18 06:02 Lymph % (Auto) 7.0 % (20.0-40.0) L 04/28/18 06:02 [place] % (Auto) 10.2 % (0.0-10.0) H 04/28/18 06:02 Eos % (Auto) 2.0 % (0.0-4.0) 04/28/18 06:02 Baso % (Auto) 1.0 % (0.0-2.0) 04/28/18 06:02 Neut # (Auto) 8.3 K/uL (1.8-7.0) H 04/28/18 06:02 Lymph # (Auto) 0.7 K/uL (1.0-4.3) L 04/28/18 06:02 [place] # (Auto) 1.1 K/uL (0.0-0.8) H 04/28/18 06:02 Eos # (Auto) 0.2 K/uL (0.0-0.7) 04/28/18 06:02 Baso # (Auto) 0.1 K/uL (0.0-0.2) 04/28/18 06:02 Neutrophils % (Manual) 83 % (50-75) H 04/28/18 06:02 Band Neutrophils % 1 % (0-2) 04/28/18 06:02 Lymphocytes % (Manual) 9 % (20-40) L 04/28/18 06:02 Monocytes % (Manual) 7 % (0-10) 04/28/18 06:02 Eosinophils % (Manual) 1 % (0-4) 04/27/18 06:54 Platelet Estimate Slightly decreased (NORMAL) L 04/28/18 06:02 Large Platelets Present 04/26/18 20:11 Hypochromasia (manual) Slight 04/27/18 06:54 Anisocytosis (manual) Slight 04/28/18 06:02 PT 12.3 SECONDS (9.7-12.2) H 04/27/18 06:54 INR 1.1 04/27/18 06:54 APTT 46 SECONDS (21-34) H D 04/27/18 06:54 D-Dimer, Quantitative 1264 ng/mlDDU (0-243) H 04/26/18 20:11 Puncture Site Rr 04/26/18 00:50 pCO2 37 mm/Hg (35-45) 04/26/18 00:50 pO2 89 mm/Hg (80-100) 04/26/18 00:50 HCO3 21.7 mmol/L (21-28) 04/26/18 00:50 ABG pH 7.36 (7.35-7.45) 04/26/18 00:50 ABG Total CO2 22.0 mmol/L (22-28) 04/26/18 00:50 ABG O2 Saturation 98.0 % (95-98) 04/26/18 00:50 ABG Base Excess -4.1 mmol/L (-2.0-3.0) L 04/26/18 00:50 ABG Hemoglobin 10.1 g/dL (11.7-17.4) L 04/26/18 00:50 ABG Carboxyhemoglobin 2.8 % (0.5-1.5) H 04/26/18 00:50 POC ABG HHb (Measured) 1.9 % (0.0-5.0) 04/26/18 00:50 ABG Methemoglobin 1.5 % (0.0-3.0) 04/26/18 00:50 Douglas Test Yes 04/26/18 00:50 A-a O2 Difference 79.0 mm/Hg 04/26/18 00:50 Respiratory Index 0.9 04/26/18 00:50 Hgb O2 Saturation 93.9 % (95.0-98.0) L 04/26/18 00:50 FiO2 30.0 % 04/26/18 00:50 Sodium 139 mmol/L (132-148) 04/28/18 06:02 Potassium 3.7 mmol/L (3.6-5.2) 04/28/18 06:02 Chloride 100 mmol/L (98-107) 04/28/18 06:02 Carbon Dioxide 21 mmol/L (22-30) L 04/28/18 06:02 Anion Gap 22 (10-20) H 04/28/18 06:02 BUN 105 mg/dL (9-20) H* 04/28/18 06:02 Creatinine 12.0 mg/dL (0.8-1.5) H* 04/28/18 06:02 Est GFR ( Amer) 6 04/28/18 06:02 Est GFR (Non-Af Amer) 5 04/28/18 06:02 Random Glucose 85 mg/dL (75-110) 04/28/18 06:02 Calcium 7.1 mg/dl (8.6-10.4) L 04/28/18 06:02 Total Bilirubin 0.4 mg/dL (0.2-1.3) 04/28/18 06:02 AST 19 U/L (17-59) 04/28/18 06:02 ALT 34 U/L (21-72) 04/28/18 06:02 Alkaline Phosphatase 41 U/L (38-126) 04/28/18 06:02 Troponin I 0.0330 ng/mL (0.00-0.120) 04/26/18 20:11 Total Protein 5.6 g/dL (6.3-8.3) L 04/28/18 06:02 Albumin 3.2 g/dL (3.5-5.0) L 04/28/18 06:02 Globulin 2.4 gm/dL (2.2-3.9) 04/28/18 06:02 Albumin/Globulin Ratio 1.3 (1.0-2.1) 04/28/18 06:02 Lipase 274 U/L (23-300) 04/26/18 20:11 Urine Color Straw (YELLOW) 04/27/18 00:45 Urine Clarity Clear (Clear) 04/27/18 00:45 Urine pH 6.0 (5.0-8.0) 04/27/18 00:45 Ur Specific Otis 1.010 (1.003-1.030) 04/27/18 00:45 Urine Protein 2+ mg/dL (NEGATIVE) H 04/27/18 00:45 Urine Glucose (UA) 1+ mg/dL (Normal) H 04/27/18 00:45 Urine Ketones Negative mg/dL (NEGATIVE) 04/27/18 00:45 Urine Blood 1+ (NEGATIVE) H 04/27/18 00:45 Urine Nitrate Negative (NEGATIVE) 04/27/18 00:45 Urine Bilirubin Negative (NEGATIVE) 04/27/18 00:45 Urine Urobilinogen Normal mg/dL (0.2-1.0) 04/27/18 00:45 Ur Leukocyte Esterase Neg Jaci/uL (Negative) 04/27/18 00:45 Urine WBC (Auto) 2 /hpf (0-5) 18 00:45 Urine RBC (Auto) 3 /hpf (0-3) 18 00:45 Ur Squamous Epith Cells < 1 /hpf (0-5) 04/27/18 00:45 Influenza Typ A,B (EIA) Negative for flu a/b (NEGATIVE) 04/27/18 07:04 - Hospital Course Hospital Course: On admission: Pt is a 38yo M with PMH anxiety, ESRD on peritoneal dialysis daily, CKD prese nts to ED with chest pain for 2 days. Pt reports sharp pain in epigastric region and pressure-like pain on R side of chest that radiates to right neck. Pt rates pain at a 9/10. He reports associated palpitations, shortness of breath, dizziness, headache, and nausea. He denies any sweating, vomiting, diarrhea, or dysuria. In the ED, EKG showed NSR @92 bpm. Troponin x1 was negative. CXR and CT chest showed patchy b/l infiltrates. D-dimer was elevated at 1264. Pt was given nitroglycerin and started on azithromycin, ceftriaxone, and heparin bolus. Hospital Course: Patient admitted and treated for pneumonia with azithromycin 500 IV daily and rocephin 1g IV daily. CXR and CT chest were done which showed bilateral patchy infiltrates (see full report). Patient had an elevated D-dimer in ED. CT angio was not recommended due to ESRD. V/Q scan showed low probability for acute clot. Patient resumed daily peritoneal dialysis while hospitalized. He was followed by Dr. Walters who recommended to continue home peritoneal dialysis. Home medications were resumed as well. Patient's symptoms resolved during stay and felt much better on day of discharge. He is discharged to home with PO antibiotics. Discharge instructions: Patient is stable for discharge as per Dr. Russo. Patient is being discharged with the follow prescriptions: Augmentin 875-125mg twice daily for 6 days Colace 100mg twice daily Patient is to follow up with Dr. Oneal/Dr. Walters's nephrology group. Contact information will be included in your discharge packet. You are to continue peritoneal dialysis. You will receive a script for peritoneal dialysis with your discharge packet. Return to Emergency department if you experience new or worsening symptoms. Discharge Exam - Head Exam Head Exam: NORMAL INSPECTION, NORMOCEPHALIC - Eye Exam Eye Exam: EOMI, PERRL - ENT Exam ENT Exam: Mucous Membranes Moist - Respiratory Exam Respiratory Exam: Decreased Breath Sounds (in all rao worse in RUL). absent: Rales, Rhonchi, Wheezes - Cardiovascular Exam Cardiovascular Exam: REGULAR RHYTHM, +S1, +S2 - GI/Abdominal Exam GI & Abdominal Exam: Soft. absent: Guarding, Rebound, Tenderness Additional comments: Peritoneal dialysis access R abdomen. Dressing is clean dry and intact. - Extremities Exam Extremities exam: full ROM, normal inspection - Neurological Exam Neurological exam: Alert, CN II-XII Intact, Oriented x3 - Psychiatric Exam Psychiatric exam: Normal Affect, Normal Mood - Skin Skin Exam: Dry, Normal Color, Warm Discharge Plan - Discharge Medications Prescriptions: Amoxicillin/Clavulanate [Augmentin 875 MG-125 MG] 1 tab PO BID #12 tab Docusate Sodium [Colace] 100 mg PO BID #28 capsule - Follow Up Plan Condition: STABLE Disposition: HOME/ ROUTINE Instructions: Pneumonia, Adult (DC), Community-Acquired Pneumonia, Adult (DC), Dialysis and Diet Additional Instructions: Patient is stable for discharge as per Dr. Russo. Patient is being discharged with the follow prescriptions: Augmentin 875-125mg twice daily for 6 days Colace 100mg twice daily Patient is to follow up with Dr. Oneal/Dr. Walters's nephrology group. Contact information will be included in your discharge packet. You are to continue peritoneal dialysis. You will receive a script for peritoneal dialysis with your discharge packet. Return to ED if you experience new or worsening symptoms. Referrals: Vince Oneal MD [Staff Provider] - <Reginald Russo H - Last Filed: 04/29/18 07:26> Provider - Provider Date of Admission: 04/26/18 22:58 Attending physician: Brett Alvarenga MD Hospital Course - Lab Results Lab Results: Micro Results 04/27/18 08:55 Naris MRSA Culture (Admit) - Final MRSA NOT DETECTED 04/27/18 00:35 Urine,Clean Catch Urine Culture - Final No Growth (<1,000 CFU/ML) 04/26/18 22:30 Blood Blood Culture - Preliminary NO GROWTH AFTER 24 HOURS 04/26/18 23:00 Blood Blood Culture - Preliminary NO GROWTH AFTER 24 HOURS Most Recent Lab Values WBC 10.4 K/uL (4.8-10.8) 04/28/18 06:02 RBC 3.15 Mil/uL (4.40-5.90) L 04/28/18 06:02 Hgb 9.2 g/dL (12.0-18.0) L 04/28/18 06:02 Hct 27.4 % (35.0-51.0) L 04/28/18 06:02 MCV 87.0 fL (80.0-94.0) 04/28/18 06:02 MCH 29.2 pg (27.0-31.0) 04/28/18 06:02 MCHC 33.5 g/dL (33.0-37.0) 04/28/18 06:02 RDW 16.4 % (11.5-14.5) H 04/28/18 06:02 Plt Count 122 K/uL (130-400) L 04/28/18 06:02 MPV 7.0 fL (7.2-11.7) L 04/28/18 06:02 Neut % (Auto) 79.8 % (50.0-75.0) H 04/28/18 06:02 Lymph % (Auto) 7.0 % (20.0-40.0) L 04/28/18 06:02 [place] % (Auto) 10.2 % (0.0-10.0) H 04/28/18 06:02 Eos % (Auto) 2.0 % (0.0-4.0) 04/28/18 06:02 Baso % (Auto) 1.0 % (0.0-2.0) 04/28/18 06:02 Neut # (Auto) 8.3 K/uL (1.8-7.0) H 04/28/18 06:02 Lymph # (Auto) 0.7 K/uL (1.0-4.3) L 04/28/18 06:02 [place] # (Auto) 1.1 K/uL (0.0-0.8) H 04/28/18 06:02 Eos # (Auto) 0.2 K/uL (0.0-0.7) 04/28/18 06:02 Baso # (Auto) 0.1 K/uL (0.0-0.2) 04/28/18 06:02 Neutrophils % (Manual) 83 % (50-75) H 04/28/18 06:02 Band Neutrophils % 1 % (0-2) 04/28/18 06:02 Lymphocytes % (Manual) 9 % (20-40) L 04/28/18 06:02 Monocytes % (Manual) 7 % (0-10) 04/28/18 06:02 Eosinophils % (Manual) 1 % (0-4) 04/27/18 06:54 Platelet Estimate Slightly decreased (NORMAL) L 04/28/18 06:02 Large Platelets Present 04/26/18 20:11 Hypochromasia (manual) Slight 04/27/18 06:54 Anisocytosis (manual) Slight 04/28/18 06:02 PT 12.3 SECONDS (9.7-12.2) H 04/27/18 06:54 INR 1.1 04/27/18 06:54 APTT 46 SECONDS (21-34) H D 04/27/18 06:54 D-Dimer, Quantitative 1264 ng/mlDDU (0-243) H 04/26/18 20:11 Puncture Site Rr 04/26/18 00:50 pCO2 37 mm/Hg (35-45) 04/26/18 00:50 pO2 89 mm/Hg (80-100) 04/26/18 00:50 HCO3 21.7 mmol/L (21-28) 04/26/18 00:50 ABG pH 7.36 (7.35-7.45) 04/26/18 00:50 ABG Total CO2 22.0 mmol/L (22-28) 04/26/18 00:50 ABG O2 Saturation 98.0 % (95-98) 04/26/18 00:50 ABG Base Excess -4.1 mmol/L (-2.0-3.0) L 04/26/18 00:50 ABG Hemoglobin 10.1 g/dL (11.7-17.4) L 04/26/18 00:50 ABG Carboxyhemoglobin 2.8 % (0.5-1.5) H 04/26/18 00:50 POC ABG HHb (Measured) 1.9 % (0.0-5.0) 04/26/18 00:50 ABG Methemoglobin 1.5 % (0.0-3.0) 04/26/18 00:50 Douglas Test Yes 04/26/18 00:50 A-a O2 Difference 79.0 mm/Hg 04/26/18 00:50 Respiratory Index 0.9 04/26/18 00:50 Hgb O2 Saturation 93.9 % (95.0-98.0) L 04/26/18 00:50 FiO2 30.0 % 04/26/18 00:50 Sodium 139 mmol/L (132-148) 04/28/18 06:02 Potassium 3.7 mmol/L (3.6-5.2) 04/28/18 06:02 Chloride 100 mmol/L (98-107) 04/28/18 06:02 Carbon Dioxide 21 mmol/L (22-30) L 04/28/18 06:02 Anion Gap 22 (10-20) H 04/28/18 06:02 BUN 105 mg/dL (9-20) H* 04/28/18 06:02 Creatinine 12.0 mg/dL (0.8-1.5) H* 04/28/18 06:02 Est GFR ( Amer) 6 04/28/18 06:02 Est GFR (Non-Af Amer) 5 04/28/18 06:02 Random Glucose 85 mg/dL (75-110) 04/28/18 06:02 Calcium 7.1 mg/dl (8.6-10.4) L 04/28/18 06:02 Total Bilirubin 0.4 mg/dL (0.2-1.3) 04/28/18 06:02 AST 19 U/L (17-59) 04/28/18 06:02 ALT 34 U/L (21-72) 04/28/18 06:02 Alkaline Phosphatase 41 U/L (38-126) 04/28/18 06:02 Troponin I 0.0330 ng/mL (0.00-0.120) 04/26/18 20:11 Total Protein 5.6 g/dL (6.3-8.3) L 04/28/18 06:02 Albumin 3.2 g/dL (3.5-5.0) L 04/28/18 06:02 Globulin 2.4 gm/dL (2.2-3.9) 04/28/18 06:02 Albumin/Globulin Ratio 1.3 (1.0-2.1) 04/28/18 06:02 Lipase 274 U/L (23-300) 04/26/18 20:11 Urine Color Straw (YELLOW) 04/27/18 00:45 Urine Clarity Clear (Clear) 04/27/18 00:45 Urine pH 6.0 (5.0-8.0) 04/27/18 00:45 Ur Specific Otis 1.010 (1.003-1.030) 04/27/18 00:45 Urine Protein 2+ mg/dL (NEGATIVE) H 04/27/18 00:45 Urine Glucose (UA) 1+ mg/dL (Normal) H 04/27/18 00:45 Urine Ketones Negative mg/dL (NEGATIVE) 04/27/18 00:45 Urine Blood 1+ (NEGATIVE) H 04/27/18 00:45 Urine Nitrate Negative (NEGATIVE) 04/27/18 00:45 Urine Bilirubin Negative (NEGATIVE) 04/27/18 00:45 Urine Urobilinogen Normal mg/dL (0.2-1.0) 04/27/18 00:45 Ur Leukocyte Esterase Neg Jaci/uL (Negative) 04/27/18 00:45 Urine WBC (Auto) 2 /hpf (0-5) 04/27/18 00:45 Urine RBC (Auto) 3 /hpf (0-3) 04/27/18 00:45 Ur Squamous Epith Cells < 1 /hpf (0-5) 04/27/18 00:45 Influenza Typ A,B (EIA) Negative for flu a/b (NEGATIVE) 04/27/18 07:04 Attending/Attestation - Attestation I have personally seen and examined this patient.: Yes I have fully participated in the care of the patient.: Yes I have reviewed all pertinent clinical information, including history, physical exam and plan: Yes Notes (Text): 04/29/18 07:22 Medical attending: Patient was seen and examined by me. Agree with the above note by the resident The patient earlier reported feeling better and was asking to go home. He was also seen by nephrology as well and has had PD dialysis sessions while he has been here. Patient will be going home with PO abx Edmar Russo
[2018-04-28 17:25] VITALS: PULSE 73
== END 2018-04-28 17:30 | disposition home or self-care (01) | DRG 89 ==
LOC: C.ER 19:06 → C.9E 22:58 → C.9I 04-27 07:04
PROVIDERS: ADMIT Family Medicine; ATTEND Family Medicine
DX: J18.9 Pneumonia, unspecified organism (principal); N18.6 End stage renal disease; K59.00 Constipation, unspecified; R79.1 Abnormal coagulation profile; D64.9 Anemia, unspecified; Z87.891 Personal history of nicotine dependence; Z99.2 Dependence on renal dialysis